=== PATIENT | female | born 1940 | race Caucasian/White ===

== ENCOUNTER → 2016-04-27 | Outpatient (CLI) | payer MEDICARE ==
[~2016-04-27] MED LIST: ASPI1TAB69 PO; ASPI81TA11 PO; ATOR10TA15 PO; BUPR100CR PO; CALCCHW25 CHEW; CELE10TA PO; CELE20TA PO; LEVO25TA4 PO; LISI-519 PO; METF-382 PO; MULTTAB67 PO; OMEGCAP PO; OMEP20TA PO; PRIL20CA9 PO; VENL37.5 PO
[2016-04-27 16:30] LABS: FREE T4 0.78 NG/DL (0.76-1.46)
== END ==
LOC: PLAB 13:34
PROVIDERS: ATTEND Family Medicine
DX: E03.9 Hypothyroidism, unspecified (principal)
CPT/HCPCS: 36415; 84439; 84443

== ENCOUNTER → 2016-11-01 | Outpatient (CLI) | payer MEDICARE ==
[~2016-11-01] MED LIST changes: -ASPI1TAB69 PO; -BUPR100CR PO; +BUSP15TA PO; -CELE10TA PO; +LEVO50TA4 PO; -METF-382 PO; +METF1000 PO; +PNEU25IN IM; -PRIL20CA9 PO; -VENL37.5 PO; +ZOLO50TA PO
[2016-11-01 12:49] LABS: MICRO ALBUMIN RANDOM URINE RAW 12.1 MG/L (0.0-30.0)
[2016-11-01 13:05] LABS: ANION GAP 8 MEQ/L (5-15); AST (GOT) 22 U/L (15-37); BICARBONATE 27.1 MEQ/L (21.0-32.0); BLOOD UREA NITROGEN 9 MG/DL (7-18); CHLORIDE 108 MEQ/L (98-107); GLOMERULAR FILTRATION RATE 69 ML/MIN (>89); GLUCOSE,FASTING 110 MG/DL (74-99); POTASSIUM 4.1 MEQ/L (3.5-5.1); SODIUM (NA) 143 MEQ/L (136-145)
[2016-11-01 13:35] LABS: ALKALINE PHOSPHATASE 82 U/L (45-117); ALT (GPT) 21 U/L (10-53); HDL CHOLESTEROL 64.9 MG/DL (40.0-60.0); LDL CHOLESTEROL 50 MG/DL (0-99); TOTAL BILIRUBIN ADULT 0.3 MG/DL (0.2-1.0)
[2016-11-01 17:08] LABS: HEMOGLOBIN A1a 1.1 %; HEMOGLOBIN Ao 84.1 %; HEMOGLOBIN LA1C 2.1 %; HEMOGLOBIN P3 3.8 %
== END ==
LOC: PLAB 09:10
PROVIDERS: ATTEND Family Medicine
DX: E78.5 Hyperlipidemia, unspecified (principal); E11.9 Type 2 diabetes mellitus without complications; I10 Essential (primary) hypertension; E03.9 Hypothyroidism, unspecified
CPT/HCPCS: 36415; 80053; 80061; 82043; 82607; 83036; 84443

== ENCOUNTER → 2016-12-14 | Outpatient (CLI) | payer MEDICARE ==
[~2016-12-14] MED LIST changes: -CELE20TA PO; -LEVO25TA4 PO; -LISI-519 PO; -OMEGCAP PO; -PNEU25IN IM
[2016-12-14 16:25] LABS: FREE T4 0.83 NG/DL (0.76-1.46)
== END ==
LOC: PLAB 13:12
PROVIDERS: ATTEND Family Medicine
DX: E03.9 Hypothyroidism, unspecified (principal)
CPT/HCPCS: 36415; 84439; 84443

== ENCOUNTER → 2017-06-29 | Outpatient (CLI) | payer MEDICARE ==
[~2017-06-29] MED LIST changes: -ASPI81TA11 PO; +ASPI81TA23 PO; -BUSP15TA PO; -OMEP20TA PO; +OMEP20TA93 PO; +SERT-129 PO; -ZOLO50TA PO
[2017-06-29 14:59] LABS: ALBUMIN 3.8 GM/DL (3.4-5.0); BICARBONATE 25.6 MEQ/L (21.0-32.0); BLOOD UREA NITROGEN 13 MG/DL (7-18); CALCIUM 9.2 MG/DL (8.5-10.1); CHLORIDE 108 MEQ/L (98-107); CHOLESTEROL 186 MG/DL (120-200); CREATININE 0.85 MG/DL (0.50-1.00); GLOMERULAR FILTRATION RATE 65 ML/MIN (>89); SODIUM (NA) 143 MEQ/L (136-145); TRIGLYCERIDES 133 MG/DL (42-150)
[2017-06-29 15:21] LABS: ALKALINE PHOSPHATASE 69 U/L (45-117); ALT (GPT) 23 U/L (10-53); AST (GOT) 26 U/L (15-37); CHOLESTEROL/ HDL RATIO 2.98 RATIO; FREE T4 0.79 NG/DL (0.76-1.46); GLUCOSE,FASTING 105 MG/DL (74-99); HDL CHOLESTEROL 62.4 MG/DL (40.0-60.0); LDL CHOLESTEROL 97 MG/DL (0-99); TOTAL BILIRUBIN ADULT 0.4 MG/DL (0.2-1.0); TOTAL PROTEIN 7.3 GM/DL (6.4-8.2)
[2017-06-29 17:51] LABS: HEMOGLOBIN A1C 6.5 % (4.3-6.0)
== END ==
LOC: PLAB 09:26
PROVIDERS: ATTEND Family Medicine
DX: E78.5 Hyperlipidemia, unspecified (principal); E11.9 Type 2 diabetes mellitus without complications; E03.9 Hypothyroidism, unspecified
CPT/HCPCS: 36415; 80053; 80061; 83036; 84439; 84443